=== PATIENT | male | born 1975 | race Caucasian/White ===

== ENCOUNTER 2022-09-02 11:47 | Outpatient (CLI) | payer OTHER, SELFPAY ==
[2022-09-02 20:15] LABS: Alanine Aminotransferase 19 U/L (6-50); Albumin Level 4.4 g/dL (3.5-5.1); Alkaline Phosphatase 66 U/L (38-126); Anion Gap 12 mmol/L (8-16); Aspartate Amino Transferase 23 U/L (17-59); Bilirubin,Total 1.1 mg/dL (0.2-1.3); Blood Urea Nitrogen 9 mg/dL (9-20); Calcium 9.1 mg/dL (8.4-10.2); Carbon Dioxide 26 mmol/L (22-30); Chloride 102 mmol/L (98-107); Cholesterol 227 mg/dL (0-200); Estimated Glomerular Filt Rate > 60; Glucose 110 mg/dL (65-110); HDL Direct 57 mg/dL; Potassium 4.1 mmol/L (3.4-5.0); Sodium 140 mmol/L (137-145); Triglycerides 95 mg/dL (<150)
[2022-09-02 20:26] LABS: LDL Cholesterol Direct 127 mg/dL
[2022-09-02 20:34] LABS: Vitamin D 25 Hydroxy 30.8 ng/mL
== END 2022-09-02 11:48 | disposition home or self-care (01) ==
LOC: ANHGOSHLAB 11:49
PROVIDERS: PCP Family Medicine; Visit Provider Family Medicine
DX: Z13.228 Encounter for screening for other metabolic disorders (principal); E55.9 Vitamin D deficiency, unspecified; E78.5 Hyperlipidemia, unspecified
CPT/HCPCS: 36415; 80053; 80061; 82306

== ENCOUNTER 2023-09-01 09:46 | Outpatient (CLI) | payer OTHER, SELFPAY ==
[2023-09-01 19:45] LABS: Alanine Aminotransferase 23 U/L (6-50); Albumin Level 3.9 g/dL (3.5-5.1); Alkaline Phosphatase 67 U/L (38-126); Anion Gap 2 mmol/L (8-16); Aspartate Amino Transferase 33 U/L (17-59); Bilirubin,Total 1.3 mg/dL (0.2-1.3); Blood Urea Nitrogen 11 mg/dL (9-20); Calcium 8.7 mg/dL (8.4-10.2); Carbon Dioxide 31 mmol/L (22-30); Chloride 106 mmol/L (98-107); Cholesterol 173 mg/dL (0-200); Estimated Glomerular Filt Rate > 60; Glucose 101 mg/dL (65-110); HDL Direct 71 mg/dL; Potassium 4.4 mmol/L (3.4-5.0); Sodium 139 mmol/L (137-145); Triglycerides 60 mg/dL (<150)
[2023-09-01 19:56] LABS: LDL Cholesterol Direct 81 mg/dL
== END 2023-09-01 09:47 | disposition home or self-care (01) ==
LOC: ANHGOSHLAB 09:47
PROVIDERS: PCP Family Medicine; Visit Provider Family Medicine
DX: Z13.228 Encounter for screening for other metabolic disorders (principal); E78.5 Hyperlipidemia, unspecified
CPT/HCPCS: 36415; 80053; 80061

== ENCOUNTER 2024-03-16 08:44 | Outpatient (CLI) | payer OTHER, SELFPAY ==
--- NOTE | 2024-03-17 11:20 | WPDHOMESLEEP ---
Sleep Study - Home Unattended Date of Study: 03/16/24 Ordering Provider: Timur Gay DO Interpreting Provider: Anastasia García MD Home Sleep Study Type: Watch PAT Height: 1.83 m Weight: 170.097 kg Body Mass Index: 50.8 Neck Circumference (inches): 18 [place]: 24 Reason for Sleep Study Hypersomnolence, poor quality sleep, always tired Sleep History Gianluca Dudley is a 47-year-old man with severe excessive daytime sleepiness. There is a family history of sleep problems, in his daughters. He rarely awakens from sleep feeling short of breath. He rarely wakes at night with heartburn, belching or coughing.??He constantly snores, and constantly snores loudly enough that others complain. He constantly has trouble sleeping when he has a cold. He rarely wakes up gasping for breath during the night. He constantly has breathing problems at night. He occasionally sweats excessively at night. He rarely notices his heart pounding or beating irregularly during the night. He occasionally falls asleep during the day. He occasionally falls asleep involuntarily, occasionally falls asleep while driving. He never experiences loss of muscle tone with strong emotion. He occasionally has daytime difficulty at work due to excessive sleepiness. He never feels paralyzed on waking or falling asleep. He occasionally experiences vivid dreams upon waking or falling asleep. He never feels afraid of going to sleep. He occasionally has nightmares. He occasionally recalls his dreams. He occasionally has thoughts racing through his mind. He never feels sad or depressed. He rarely feels anxiety. He occasionally notices parts of his body jerk. He occasionally kicks during the night. He rarely feels crawling or aching feelings in his legs. He rarely feels leg pain at night. He rarely has morning jaw pain, constantly grinds his teeth at night. He rarely feels bothered by pain during the day, rarely awakened by pain during the night. He occasionally wakes up feeling stiff in the morning, and he occasionally wakes feeling sore or achy. He occasionally awakens with pain in his neck, spine, or joints. Normal bedtime is 10:00 p.m., however he does not fall asleep within a specific time frame. It is very inconsistent. He estimates waking up between 2 and 5 times during the night to use the bathroom. These awakenings occur soon after falling asleep, in the middle of the night and in the speed reading teacher hours. His normal wake time is 5:45 a.m.. His weekend schedule varies. He gets up immediately after his alarm sounds. His normal work schedule is 7:00 a.m. to 3:00 p.m. however he may get called out at any time afterwards. He gets a variable amount of sleep at night depending on how long it takes him to fall asleep. He takes naps in the day, however a short nap lasting 10-15 minutes is not refreshing. He is usually drowsy for 3 hours after waking. He feels better in the morning compared to other times of day. He reports gaining weight during the last year. He has acid reflux and environmental allergies. Habits:??Tobacco:never smoker Caffeine:drinks caffeine, variable amount. Alcohol:on Friday or Friday Recreational substances: none PMFSH Past Medical History Medical History (Updated 03/17/24 @ 11:26 by Anastasia García MD) Dermatitis Hyperlipidemia LDL goal <130 Morbid obesity due to excess calories Family History Family History Mother Diabetes mellitus Father Diabetes mellitus Heart disease Social History Social History Smoking status: Never smoker Alcohol intake: current Alcohol use details: Drinks a few beers occasionally on weekends Substance use: never Substance use type: does not use Do You Feel Safe in your Home?: Yes Lack of Transportation: No Lack of Food: Never True Current Housing: I Have Housing Ani
[2024-03-17 11:26] VITALS: BMI 50.8
== END 2024-03-17 07:30 | disposition home or self-care (01) ==
LOC: ANHCSM 08:44
PROVIDERS: PCP Family Medicine; Visit Provider Family Medicine
DX: G47.33 Obstructive sleep apnea (adult) (pediatric) (principal); G47.10 Hypersomnia, unspecified; Z68.43 Body mass index [BMI] 50.0-59.9, adult
CPT/HCPCS: 95800

== ENCOUNTER 2024-09-08 09:38 | Outpatient (CLI) | payer OTHER, SELFPAY ==
[2024-09-08 17:28] LABS: Alanine Aminotransferase 20 U/L (6-50); Albumin Level 3.9 g/dL (3.5-5.1); Alkaline Phosphatase 63 U/L (38-126); Anion Gap 4 mmol/L (4-12); Aspartate Amino Transferase 38 U/L (17-59); Bilirubin,Total 1.6 mg/dL (0.2-1.3); Blood Urea Nitrogen 11 mg/dL (9-20); Calcium 9.1 mg/dL (8.4-10.2); Carbon Dioxide 31 mmol/L (22-30); Chloride 102 mmol/L (98-107); Cholesterol 205 mg/dL (0-200); Estimated Glomerular Filt Rate > 60; Glucose 101 mg/dL (65-110); HDL Direct 58 mg/dL; Potassium 4.3 mmol/L (3.4-5.0); Sodium 137 mmol/L (137-145); Triglycerides 97 mg/dL (<150)
[2024-09-08 17:38] LABS: LDL Cholesterol Direct 106 mg/dL
== END 2024-09-08 09:39 | disposition home or self-care (01) ==
LOC: ANHGOSHLAB 09:39
PROVIDERS: PCP Family Medicine; Visit Provider Family Medicine
DX: Z13.228 Encounter for screening for other metabolic disorders (principal); E78.5 Hyperlipidemia, unspecified
CPT/HCPCS: 36415; 80053; 80061

== ENCOUNTER 2024-09-10 15:57 | Outpatient (CLI) | payer OTHER, SELFPAY ==
[2024-09-10 18:08] LABS: Add Urine Microscopic? NO; Appearance Urine Clear (Clear); Bilirubin Urine Negative (Negative); Blood Urine Negative (Negative); Color Urine Yellow (Yellow); Glucose Urine UA Negative (Negative); Ketones Urine Negative (Negative); Leukocyte Esterase Ur Negative LEU/UL (Negative); Nitrate Urine Negative (Negative); Protein Urine Negative (Negative); Specific Grav Ur 1.023 (1.001-1.035); Urobilinogen Urine 0.2 mg/dL (<2.0)
== END 2024-09-10 15:58 | disposition home or self-care (01) ==
PROVIDERS: PCP Family Medicine; Visit Provider Family Medicine
DX: R30.0 Dysuria (principal)
CPT/HCPCS: 81003

== ENCOUNTER 2024-09-10 16:03 | Outpatient (CLI) | payer OTHER, SELFPAY ==
--- NOTE | ~2024-09-10 | XR_ITS ---
XR abdomen/kub 1V Ordering provider: Timur Gay DO History: . R10.9 - Unspecified abdominal pain . Comparison: None. FINDINGS: BOWEL: Nonobstructive bowel gas pattern. ORGANOMEGALY: None. SIGNIFICANT PATHOLOGIC CALCIFICATIONS: None. OTHER: No free air is seen under the diaphragm. IMPRESSION: NO ACUTE ABDOMINAL FINDINGS. Reviewed, dictated and finalized at location A.
== END 2024-09-10 16:04 | disposition home or self-care (01) ==
LOC: GOSHIMG 16:05
PROVIDERS: PCP Family Medicine; Visit Provider Family Medicine
DX: R10.9 Unspecified abdominal pain (principal)
CPT/HCPCS: 74018

== ENCOUNTER 2025-03-16 20:10 | Emergency (ER) | payer OTHER, SELFPAY ==
--- NOTE | ~2025-03-16 | XR_ITS ---
HISTORY: knee pain COMPARISON: None TECHNIQUE: 4 views of the left knee were performed FINDINGS: No acute or subacute fracture, erosion, lytic or sclerotic lesion. Medial tibiofemoral joint space narrowing is identified. No suprapatellar joint effusion is identified. The infrapatellar joint space is clear. IMPRESSION: Degenerative disease without acute fracture Reviewed, dictated and finalized at location A.
[2025-03-16 20:12] VITALS: BP 137/84; PULSE 100; RESP 15; TEMP 37.3; O2SAT 100
--- NOTE | 2025-03-16 22:41 | ED_ITS ---
HPI - Extremity Problem General Chief complaint: Extremity Problem,Nontraumatic Stated complaint: L knee pain Time Seen by Provider: 03/16/25 22:05 History of Present Illness HPI Narrative: 49-year-old male presents to the emergency department for left knee pain. Patient states in Jan to he tweaked his knee while walking has been having left knee pain since. States today while he was walking down the stairs he stepped down and felt a sharp pain in his left knee which prompted him to come to the ED. He states the pain is mostly in the anterior and lateral aspect of the left knee and at times radiates to the back of his knee and down his leg. States pain is worse with flexion of the knee. No fevers, warmth or erythema. Denies pain in the remainder of extremity. Related Data Home Medications ?Medication ?Instructions ?Recorded ?Confirmed ?Last Taken ?Type clobetasol 0.05 % topical cream topical 09/25/23 09/10/24 Unknown History crisaborole 2 % topical ointment topical 09/25/23 09/10/24 Unknown History (Eucrisa) Allergies Allergy/AdvReac Type Severity Reaction Status Date / Time No Known Allergies Allergy Mild Verified 03/16/25 20:10 Review of Systems Review of Systems: All systems reviewed & are unremarkable except as noted in HPI and below PMFSH Past Medical History Medical History Dermatitis Morbid obesity due to excess calories Hyperlipidemia LDL goal <130 Family History Family History Mother Diabetes mellitus Father Diabetes mellitus Heart disease Social History Social History Smoking status: Never smoker Alcohol intake: current Alcohol use details: Drinks a few beers occasionally on weekends Substance use: never Substance use type: does not use Do You Feel Safe in your Home?: Yes Lack of Transportation: No Lack of Food: Never True Current Housing: I Have Housing Concerned About Future Housing: No Difficulty Paying Gas/Electric Bills: No Difficulty Paying for Meds: No Currently Unemployed: No Education: High School Diploma/GED Difficulty w/ Childcare or Family Care: No Exam Narrative: GENERAL: Well-appearing, well-nourished, and in no acute distress. HEAD: Normocephalic, atraumatic. EYES: EOMI. ENT: Nares clear, no rhinorrhea or epistaxis. Mucous membranes moist. NECK: Supple. CHEST: Clear to auscultation. No respiratory distress. HEART: Regular rate and rhythm. No murmur heard. Normal peripheral pulses. EXTREMITIES: LLE: Mild tenderness the lateral joint line. No obvious deformity, erythema or warmth. Full active and passive range of motion of knee. No tenderness remainder of extremity. No laxity with varus or valgus stress. Negative anterior posterior drawer. Positive Laci sign. DP pulse 2 +. Sensation intact throughout. Negative Homans. No edema, warmth or erythema. SKIN: Warm, dry, no rash. NEURO: No focal deficits. Alert and oriented x3 Course Vital Signs Vital signs: Vital Signs Temperature 99.1 F 03/16/25 20:12 Pulse Rate 100 03/16/25 20:12 Respiratory Rate 15 03/16/25 20:12 Blood Pressure 137/84 03/16/25 20:12 Pulse Oximetry 100 03/16/25 20:12 Oxygen Delivery Room Air 03/16/25 20:12 Temperature 99.1 F 03/16/25 20:12 Pulse Rate 100 03/16/25 20:12 Respiratory Rate 15 03/16/25 20:12 Blood Pressure 137/84 03/16/25 20:12 Pulse Oximetry 100 03/16/25 20:12 Oxygen Delivery Room Air 03/16/25 20:12 MDM - Extremity (Nontraumatic) MDM Narrative Medical decision making narrative: 49-year-old male presents emergency department for left knee pain for the past couple of months, worse today. See HPI for further history. Triage vitals are stable. Exam significant for the above. Patient is neurovascularly intact. He has no signs of septic arthritis. No obvious deformity. Pulses and sensation are intact. Exam does indicate a positive Laci's test concerning for meniscus injury. X-ray showed degenerative disease without acute fracture or dislocation. Patient updated on results. He was placed in a mobilizer and provided crutches and a prescription for naproxen. He was advised to follow-up with orthopedist. Discussed strict ED return precautions. He is agreeable to plan verbalized understanding. Discharged in stable condition. Discharge Plan Discharge Clinical Impression: Knee pain, left Qualifiers: Chronicity: acute Qualified Code(s): M25.562 - Pain in left knee Degenerative joint disease of knee, left Qualifiers: Osteoarthritis type: unspecified Qualified Code(s): M17.12 - Unilateral primary osteoarthritis, left knee Patient Disposition: Home Condition: Stable Instructions: Antibiotic Form, Knee Sprain (ED) Additional Instructions: You were evaluated in the emergency department for knee pain. Your x-ray showed degenerative changes but no broken bones. Please wrist and the knee immobilizer as directed follow-up with orthopedics. Return to the emergency department if you develop any new or worsening symptoms. Rest, ice elevate and keep her compress for Patient Language: Citizen Of [place] Prescriptions: New naproxen 500 mg tablet 500 mg PO BID PRN (Reason: pain) Qty: 20 0RF No Action clobetasol 0.05 % cream topical Eucrisa 2 % ointment topical rosuvastatin 10 mg tablet 10 mg PO DAILY Qty: 90 3RF tadalafil 5 mg tablet 5 mg PO DAILY Qty: 30 0RF Rx Instructions: take 30 minutes prior to sexual activity azithromycin 250 mg tablet See Rx Instructions PO .COMPLEX Qty: 6 0RF Rx Instructions: For 250 mg dose pack: take 500 mg today (day 1), then 250 mg for 4 days (days 2-5) PO Follow-up/Referrals: Matti Montalvo MD [Physician] - Maximilian Claire DO [Primary Care Provider] -
[2025-03-16] MEDS: NAPROXEN 500 MG TABLET PO (22:45)
[2025-03-16 22:58] VITALS: BP 138/90; PULSE 104; RESP 18; TEMP 37.2; O2SAT 100
== END 2025-03-16 23:00 | disposition home or self-care (01) ==
PROVIDERS: Emergency Provider Physician Assistant; PCP Internal Medicine
DX: M25.562 Pain in left knee (principal); M17.12 Unilateral primary osteoarthritis, left knee
CPT/HCPCS: 73564; 99283; A9270

== ENCOUNTER 2025-09-11 11:38 | Emergency (ER) | payer OTHER, SELFPAY ==
[2025-09-11 11:40] VITALS: BP 144/89; PULSE 89; RESP 15; TEMP 37; O2SAT 95
--- OUTSIDE RECORDS SUMMARY | 2025-09-11 11:40 | XMS_ITS | Clinical Summary ---
Author Organization 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 2-4 times a month 05/31/2022 Q2: How many drinks containi ng alcohol do you have on a typical day when you are drinking? 5 or 6 05/31/2022 Q3: How often do you have si x or more drinks on one occasion? 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 Gender Identity Not on file Sexual Orientation Not on file Obstetrics History Last Filed Vital Signs Vital Sign Reading Time Taken Comments Blood Pressure 123/82 03/24/2025 10:41 AM CDT Pulse 110 03/24/2025 10:41 AM CDT Temperature - - Respiratory Rate 19 05/31/2022 11:35 AM CDT Oxygen Saturation 100% 05/31/2022 11:35 AM CDT Inhaled Oxygen Concentration - - Weight 169.6 kg (374 lb) 03/24/2025 10:41 AM CDT Height 180.3 cm (5' 11) 03/24/2025 10:41 AM CDT Body Mass Index 52.16 03/24/2025 10:41 AM CDT Plan of Treatment Health Maintenance Due Date Last Done Comments Depression Screening 1975 Hepatitis C Screening 1975 Hepatitis B Screening 1994 Regular Well Visit/Exam 18-64 1994 DTaP/Tdap/Td Vaccine (1 - Tdap) 10/25/2014 10/24/2014 Covid-19 Vaccine ( season) 2025 11/21/2021, 02/17/2021, 01/20/2021 Influenza Vaccine (#1) 2025 , 09/01/2023, 09/02/2022, Additional history exists Colon Cancer Screening-Colonoscopy 05/31/2032 05/31/2022 Pneumococcal vaccine <65 Aged Out No longer eligible based on patient's age to complete this topic Procedures Procedure Name Priority Date/Time Associated Diagnosis Comments COLONOSCOPY 05/31/2022 10:44 AM CDT from Last 3 Months or Most Recently Relevant to Health Maintenance Results * COLONOSCOPY (05/31/2022 10:44 AM CDT) Anatomical Region Laterality Modality Other Narrative Procedure Note Daniel Herman MD - 05/31/2022 10:44 AM CDT [facility] Patient Name: Gianluca Dudley Procedure Date: 05/31/2022 10:44 AM Date of : 1975 Admit Type: Outpatient Age: 46 Gender: Male Note Status: Finalized Attending MD: Daniel Herman M.D. Procedure Date: 05/31/2022 Procedure: Colonoscopy Indications: Screening for colorectal malignant neoplasm, Thisis the patient's first colonoscopy Providers: Daniel Herman M.D., Shay Guevara (AnesthesiaStaff), Anuradha Medrano RN Referring MD: Timur Gay D.O. Medicines: Monitored Anesthesia Care Complications: No immediate complications. Estimated Blood Loss: Estimated blood loss: none. Procedure: Pre-Anesthesia Assessment: - Airway Examination: small/crowded oropharyngeal airway. - Respiratory Examination: clear to auscultation. - ASA Grade Assessment: II - A patient with mild systemic disease. - After reviewing the risks and benefits, thepatient was deemed in satisfactory condition to undergo the procedure. - The risks and benefits of the procedure and the sedation options and risks were discussed with the patient. All questions were answered and informed consent was obtained. After I obtained informed consent, the scope was passed under direct vision. Throughout theprocedure, the patient's blood pressure, pulse, and oxygen saturations were monitored continuously. The scopewas passed under direct vision. The Colonoscope was introduced through the anus and advanced to the the cecum, identified by the appendiceal orifice, ileocecal valve and palpation. The colonoscopy was performed with ease. The patient tolerated the procedure well. The quality of the bowelpreparation was good. The quality of the bowel preparation was evaluated using the BBPS ([place] Bowel Preparation Scale) with scores of: Right Colon = 3 (entiremucosa seen well with no residual staining, smallfragments of stool or opaque liquid), Transverse Colon = 2 (minor amount of residual staining, small fragmentsof stool and/or opaque liquid, but mucosa seen well)and Left Colon = 3 (entire mucosa seen well with no residual staining, small fragments of stool oropaque liquid). The total BBPS score equals 8. The qualityof the bowel preparation was good. The bowelpreparation used was GoLYTELY via split dose instruction. Findings: The perianal and digital rectal examinations were normal. The colon (entire examined portion) appeared normal. The retroflexed view of the distal rectum and anal verge was normaland showed no anal or rectal abnormalities. Impression: - The entire examined colon is normal. - The distal rectum and anal verge are normal on retroflexion view. - No specimens collected. Recommendation: - Discharge patient to home (ambulatory). - Repeat colonoscopy in 10 years for screening purposes. Procedure Code(s): --- Professional --- G0121, Colorectal cancer screening; colonoscopy on individual not meeting criteria for high risk Diagnosis Code(s): --- Professional --- Z12.11, Encounter for screening for malignantneoplasm of colon CPT copyright 2020 [employer] [place] [employer]. All rights reserved. The codes documented in this report are preliminary and upon front elevator operator reviewmay be revised to meet current compliance requirements. Electronically signed by Daniel Herman MD Daniel Herman M.D. 05/31/2022 11:05:00 AM Number of Addenda: 0 Note Initiated On: 05/31/2022 10:44 AM Daniel Herman MD ENDOSCOPY PROCEDURES Final Resul t from Last 3 Months or Most Recently Relevant to Health Maintenance Insurance [facility] CMR [facility] CMR Care Teams Heat Treat Supervisor Relationship Specialty Start Date End Date Maximilian Claire DO PCP - General Internal Medicine 03/18/25
--- NOTE | 2025-09-11 12:14 | ED.NECK ---
HPI - Neck Pain/Injury General Chief Complaint: Neck Pain/Injury Stated Complaint: left neck pain Time Seen by Provider: 09/11/25 12:05 Source: patient Mode of arrival: ambulatory Limitations: no limitations History of Present Illness HPI Narrative: This is a 50-year-old male with history of hyperlipidemia who presents to the ED for neck pain. Patient states that 2 days ago, he woke up with left-sided neck pain that is worse with movements of his head to his left. He took some ibuprofen this morning that did improve the pain but he was concerned about this prompting him to come to the ED as he did begin to have tingling to his left hand. He has never had these symptoms before. Related Data Home Medications ?Medication ?Instructions ?Recorded ?Confirmed ?Last Taken ?Type clobetasol 0.05 % topical cream topical 09/25/23 07/26/25 Unknown History crisaborole 2 % topical ointment topical 09/25/23 07/26/25 Unknown History (Eucrisa) Allergies Allergy/AdvReac Type Severity Reaction Status Date / Time No Known Allergies Allergy Mild Verified 07/26/25 15:29 Review of Systems Review of Systems: Gen.: Denies fevers or chills Eyes: Denies eye pain or visual change ENT: Denies congestion Respiratory: Denies shortness of breath or cough CV: Denies chest pain or palpitations GI: Denies abdominal pain nausea, emesis or diarrhea denies burning, urgency, frequency or hematuria Musculoskeletal: As per HPI Neuro: As per HPI Skin: Denies rash Except as documented, all other systems reviewed and negative [facility] Past Medical History Medical History Dermatitis Morbid obesity due to excess calories Hyperlipidemia LDL goal <130 Family History Family History Mother Diabetes mellitus Father Diabetes mellitus Heart disease Social History Social History Smoking status: Never smoker Alcohol intake: current Alcohol use details: Drinks a few beers occasionally on weekends Substance use: never Substance use type: does not use Do You Feel Safe in your Home?: Yes Lack of Transportation: No Lack of Food: Never True Current Housing: I Have Housing Concerned About Future Housing: No Difficulty Paying Gas/Electric Bills: No Difficulty Paying for Meds: No Currently Unemployed: No Education: High School Diploma/GED Difficulty w/ Childcare or Family Care: No Exam Narrative: APPEARANCE: No acute distress, nontoxic, resting in bed HEENT: Normocephalic, atraumatic, OMM Neck: Positive Spurling's maneuver to the left RESPIRATORY: No respiratory distress CARDIOVASCULAR: Appears well perfused ABDOMINAL: Nondistended MUSCULOSKELETAl: Moves all extremities. No obvious deformities NEURO: Awake and alert. SKIN:: Warm, dry. No rashes lesions or abrasions PSYCHIATRIC: Normal affect/mood, Course Vital Signs Vital signs: Vital Signs Temperature 98.6 F 09/11/25 11:40 Pulse Rate 89 09/11/25 11:40 Respiratory Rate 15 09/11/25 11:40 Blood Pressure 144/89 H 09/11/25 11:40 Pulse Oximetry 95 09/11/25 11:40 Oxygen Delivery Room Air 09/11/25 11:40 Temperature 98.6 F 09/11/25 11:40 Pulse Rate 89 09/11/25 11:40 Respiratory Rate 15 09/11/25 11:40 Blood Pressure 144/89 H 09/11/25 11:40 Pulse Oximetry 95 09/11/25 11:40 Oxygen Delivery Room Air 09/11/25 11:40 MDM - Neck Pain/Injury MDM Narrative Medical decision making narrative: 50-year-old male presenting for unilateral neck pain. On initial evaluation, patient was in no acute distress afebrile, hemodynamically stable. He did have a positive Spurling's maneuver on the left consistent with a cervical radiculopathy likely due to a muscle spasm. Patient was given a Lidoderm patch. He was given a prescription for Dilaudid and Flexeril. He was educated on Tylenol ibuprofen use. Patient was advised follow-up with his PCP in the next week for evaluation. Patient was agreeable to this plan. Given strict return precautions. Differential Diagnosis Differential diagnosis: Likely cervical radiculopathy, torticollis and strain of neck muscle Discharge Plan Discharge Clinical Impression: Cervical radiculopathy, Cervical paraspinal muscle spasm Patient Disposition: Home Condition: Stable Instructions: Antibiotic Form, Cervical Strain (ED), Cervical Radiculopathy (ED) Additional Instructions: Take Tylenol and ibuprofen for pain. Your also given prescriptions for Flexeril and Lidoderm, take this as prescribed. Follow up with her PCP the next week or so for re-evaluation. Return the ED for any new or worsening symptoms. Patient Language: Czech Prescriptions: New cyclobenzaprine 10 mg tablet 10 mg PO HS PRN (Reason: muscle spasm) Qty: 30 0RF lidocaine [Lidoderm] 5 % adhesive patch,medicated 1 patch topical DAILY Qty: 15 0RF Rx Instructions: leave on most painful area for up to 12 hrs No Action clobetasol 0.05 % cream topical Eucrisa 2 % ointment topical rosuvastatin 10 mg tablet 10 mg PO DAILY Qty: 30 6RF Follow-up/Referrals: Kvng Denny APRN [Primary Care Provider, Family Practice]
[2025-09-11] MEDS: LIDOCAINE 5% PATCH 1 PATCH TRANSDERM (12:20)
== END 2025-09-11 12:33 | disposition home or self-care (01) ==
PROVIDERS: Emergency Provider Student in an Organized Health Care Education/Training Program; PCP Student in an Organized Health Care Education/Training Program
DX: M54.12 Radiculopathy, cervical region (principal); M62.830 Muscle spasm of back; E78.5 Hyperlipidemia, unspecified; E66.01 Morbid (severe) obesity due to excess calories; Z68.43 Body mass index [BMI] 50.0-59.9, adult; Z79.899 Other long term (current) drug therapy
CPT/HCPCS: 99283; A9270

== ENCOUNTER 2025-09-13 10:48 | Outpatient (CLI) | payer OTHER, SELFPAY ==
--- NOTE | ~2025-09-13 | XR_ITS ---
XR cervical spine 4-5V Indication: Cervicalgia x 3 days, pain down left arm Comparison: None Findings: No fracture is identified, no subluxation flexion and extension Moderate loss of disc height at C5-C6 C6-7. Soft tissues unremarkable Impression: No acute abnormality. Reviewed, dictated and finalized at location P. Impression: No acute abnormality.
== END 2025-09-13 10:49 | disposition home or self-care (01) ==
LOC: GOSHIMG 10:49
PROVIDERS: PCP Student in an Organized Health Care Education/Training Program; Visit Provider Student in an Organized Health Care Education/Training Program
DX: M54.2 Cervicalgia (principal); M54.12 Radiculopathy, cervical region
CPT/HCPCS: 72050

== ENCOUNTER 2025-09-22 09:49 | Outpatient (CLI) | payer OTHER, SELFPAY ==
--- OUTSIDE RECORDS SUMMARY | 2025-09-22 10:40 | XMS_ITS | Clinical Summary ---
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 All rights reserved. The codes documented in this report are preliminary and upon concrete foreman reviewmay be revised to meet current compliance requirements. Electronically signed by Daniel Herman MD Daniel Herman M.D. 05/31/2022 11:05:00 AM Number of Addenda: 0 Note Initiated On: 05/31/2022 10:44 AM Daniel Herman MD ENDOSCOPY PROCEDURES Final Resul t from Last 3 Months or Most Recently Relevant to Health Maintenance Insurance [facility] CMR [facility] CMR Care Teams Tobacco Farmworker Relationship Specialty Start Date End Date Maximilian Claire DO PCP - General Internal Medicine 03/18/25
[2025-09-22 19:03] LABS: Hematocrit 47.0 % (42.0-52.0); Hemoglobin 15.3 g/dL (14.0-18.0); Immature Granulocyte Percent A 0.8 % (0-0.5); Lymphocytes Absolute Auto 1.65 K/mm3 (0.9-3.2); Mean Corpuscular HGB Conc 32.6 g/dl (32-36); Mean Corpuscular Hemoglobin 31.4 pg (26-34); Mean Corpuscular Volume 96.5 fl (80-100); Nucleated Red Blood Cells Absolute Auto 0.000 K/mm3 (0.0-0.012); Nucleated Red Blood Cells Perc 0.0 % (0.0-0.2); Platelet Count Result 250 k/mm3 (150-375); Red Blood Count 4.87 M/mm3 (4.6-6.20); White Blood Count 9.2 K/mm3 (4.5-10.0)
[2025-09-22 19:13] LABS: Hemoglobin A1C 5.4 % (<5.7)
[2025-09-22 19:18] LABS: Alanine Aminotransferase 22 U/L (6-50); Albumin Level 4.0 g/dL (3.5-5.1); Alkaline Phosphatase 77 U/L (38-126); Anion Gap 6 mmol/L (4-12); Aspartate Amino Transferase 64 U/L (17-59); Bilirubin,Total 1.6 mg/dL (0.2-1.3); Blood Urea Nitrogen 12 mg/dL (9-20); Calcium 8.9 mg/dL (8.4-10.2); Carbon Dioxide 29 mmol/L (22-30); Chloride 101 mmol/L (98-107); Cholesterol 164 mg/dL (0-200); Estimated Glomerular Filt Rate > 60; Glucose 73 mg/dL (65-110); HDL Direct 63 mg/dL; Potassium 4.4 mmol/L (3.4-5.0); Sodium 136 mmol/L (137-145); Total Protein 7.3 g/dL (6.3-8.2); Triglycerides 57 mg/dL (<150)
[2025-09-22 19:56] LABS: Thyroid Stimulating Hormone 1.280 uIU/mL (0.465-4.680)
== END 2025-09-22 09:50 | disposition home or self-care (01) ==
LOC: ANHGOSHLAB 09:50
PROVIDERS: PCP Student in an Organized Health Care Education/Training Program; Visit Provider Student in an Organized Health Care Education/Training Program
DX: E78.5 Hyperlipidemia, unspecified (principal); E55.9 Vitamin D deficiency, unspecified; E66.01 Morbid (severe) obesity due to excess calories; Z68.43 Body mass index [BMI] 50.0-59.9, adult; Z13.0 Encounter for screening for diseases of the blood and blood-forming organs and certain disorders involving the immune mechanism
CPT/HCPCS: 36415; 80053; 80061; 82306; 83036; 84443; 85025